=== PATIENT | male | born 1995 | race Caucasian/White ===

== ENCOUNTER 2017-07-22 20:57 | Emergency (ER) | payer SELFPAY ==
[2017-07-22 21:02] VITALS: BP 131/74; PULSE 98; RESP 16; TEMP 36.8; O2SAT 98; BMI 29.7
--- NOTE | 2017-07-22 21:10 | XR_ITS ---
XR ribs LT min 3V w CXR1V Ordering Physician: Bashir Shepherd MD Patient Age: 22 years: Male\HISTORY: ITS.REASON: left rib pain TECHNIQUE: Both oblique views left RIBS; along with AP chest above & below diaphragm COMPARISON :January 01, 2012 02/27/2017 CXR FINDINGS Left ribs appear intact with no fracture nor lesion. No pneumothorax. No pleural effusion. Lungs are clear well-expanded with No consolidation nor focal lesion. However now asymmetric prominence of the left arnulfo. The infrahilar region of the left certainly appears to have increased in size since prior studies.. Note the patient is merely 22 years old but but still with this asymmetry Recommend follow-up CT chest with contrast to evaluate for developing adenopathy at the left arnulfo. . See no significant granulomatous disease otherwise at the left chest which may contribute. Findings warrant correlation with pleural physical exam-Any prominent palpable adenopathy evident elsewhere. The spleen does not appear to be obviously enlarged on this CT chest film The heart is normal in size. The right arnulfo appears normal. Remaining Mediastinal structures appear normal.. Incidental note mild disc space narrowing to the left at T 12/L1 with mild dextroscoliosis in this region and slight levoscoliosis more inferiorly at the lumbar spine. These latter features unchanged since February 2017. IMPRESSION: 1. Left Ribs are intact. No fracture. No left rib lesion lung estes are clear 2. Patient has developed asymmetric, prominent left arnulfo. *Would suggest follow-up CT with contrast to evaluate for developing asymmetric left hilar adenopathy left infrahilar region...In this young age patient possibly reflects granulomatous adenopathy but warrants follow-up. This observation also warrants correlation with physical exam to check for any other prominent palpable adenopathy *Note to x-ray staff/ Alesha : Please verify ER receipt of this report and document. Study placed in discrepancy to draw attention to this report
--- NOTE | 2017-07-22 21:48 | [facility].EDGENADL ---
ED Disposition Clinical Impression: Hilar mass Disposition: Home, Self-Care Condition on Discharge: Good Additional Instructions: Ibuprofen 800 mg every [address] Call Dr. Gordon and Dr. Stiles on Tuesday to arrange appointment to be seen as soon as possible. Additional instructions for CONTROLLED SUBSTANCES: You have been prescribed a medication that is a controlled substance. Controlled substances include pain medications known as opiates and sedative nerve medications known as benzodiazepines. Some common opiates include: Codeine (such as Tylenol #3) Hydrocodone (Vicodin, Lortab, Lorcet, [place]) Oxycodone (Percocet, Percodan, Oxycodone, Oxy IR) Some common benzodiazepines include: Diazepam (Valium) Lorazepam (Ativan) Alprazolam (Xanax) Clonazepam (Klonopin) Oxazepam (Serax) All of these controlled substances are highly addictive and frequently abused. Misuse can and frequently does lead to addiction as well as overdose and . Medication should be stored in a locked cabinet or other secure storage unit. Do not store the medication in a motor vehicle. Short term supplies, 3 days or less, are prescribed because of the highly addictive nature of the medication. Any of the controlled substance medication NOT taken should be disposed of properly and NOT SAVED. The recommended method of disposing of unused medications is: Place the medicines in a sealable plastic bag. If the medicine is a solid, crush it or add water to dissolve it. Add something undesirable (cat litter, coffee grounds, etc.) Dispose of sealed bag in household trash Do not flush or pour unused medicines down a sink or drain. Controlled substances should not be shared, given away or sold. Because of the addictive nature and frequent abuse, these medications are sometimes stolen. These medications should be kept in a safe place where they cannot be stolen. Do not keep them in your car or purse. Lost or stolen prescriptions for controlled substances WILL NOT BE REFILLED in this emergency department, regardless of whether a police report was filed. 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 The time I documented below is in addition to time spent performing reported procedures but includes the following listed in this critical care notation. Medical Decision Making Vital Signs: 07/22/17 21:02 Temperature 98.3 F Temperature Source Oral Pulse Rate [Right] 98 H Respiratory Rate 16 Blood Pressure [Right Arm] 131/74 Blood Pressure Mean [Right Arm] 93 Blood Pressure Source [Right Arm] Automatic Cuff Blood Pressure Position [Right Arm] Sitting 02 Sat by Pulse Oximetry 98 Oxygen Delivery Method Room Air - Lab Data Lab Results 07/22/17 22:00: WBC 10.2, RBC 4.85, Hgb 14.6, Hct 43.6, MCV 89.9, MCH 30.1, MCHC 33.5, RDW 13.4, Plt Count 256, MPV 7.7, Neut % (Auto) 69.6, Lymph % (Auto) 21.7, [place] % (Auto) 6.2, Eos % (Auto) 2.3, Baso % (Auto) 0.2, Neut # (Auto) 7.1, Lymph # (Auto) 2.2, [place]enson # (Auto) 0.6, Eos # (Auto) 0.2, Baso # (Auto) 0.0 07/22/17 22:00: Sodium 141, Potassium 3.7, Chloride 104, Carbon Dioxide 30, Anion Gap 10.7, BUN 17, Creatinine 0.94, Estimated Creat Clear 175, Estimated GFR 101, Est GFR ( Amer) 123, Glucose 88, Calcium 8.9, Total Bilirubin 0.3, AST 31, ALT 49, Alkaline Phosphatase 91, Total Protein 7.7, Albumin 4.1, Globul
--- NOTE | 2017-07-22 21:51 | ED_ITS ---
ED Disposition Clinical Impression: Hilar mass Disposition: Home, Self-Care Condition on Discharge: Good Additional Instructions: Ibuprofen 800 mg every 8 hours for pain. Call Dr. Gordon and Dr. Stiles on Tuesday to arrange appointment to be seen as soon as possible. Additional instructions for CONTROLLED SUBSTANCES: You have been prescribed a medication that is a controlled substance. Controlled substances include pain medications known as opiates and sedative nerve medications known as benzodiazepines. Some common opiates include: Codeine (such as Tylenol #3) Hydrocodone (Vicodin, Lortab, Lorcet, [employer]) Oxycodone (Percocet, Percodan, Oxycodone, Oxy IR) Some common benzodiazepines include: Diazepam (Valium) Lorazepam (Ativan) Alprazolam (Xanax) Clonazepam (Klonopin) Oxazepam (Serax) All of these controlled substances are highly addictive and frequently abused. Misuse can and frequently does lead to addiction as well as overdose and . Medication should be stored in a locked cabinet or other secure storage unit. Do not store the medication in a motor vehicle. Short term supplies, 3 days or less, are prescribed because of the highly addictive nature of the medication. Any of the controlled substance medication NOT taken should be disposed of properly and NOT SAVED. The recommended method of disposing of unused medications is: Place the medicines in a sealable plastic bag. If the medicine is a solid, crush it or add water to dissolve it. Add something undesirable (cat litter, coffee grounds, etc.) Dispose of sealed bag in household trash Do not flush or pour unused medicines down a sink or drain. Controlled substances should not be shared, given away or sold. Because of the addictive nature and frequent abuse, these medications are sometimes stolen. These medications should be kept in a safe place where they cannot be stolen. Do not keep them in your car or purse. Lost or stolen prescriptions for controlled substances WILL NOT BE REFILLED in this emergency department, regardless of whether a police report was filed. 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 The time I documented below is in addition to time spent performing reported procedures but includes the following listed in this critical care notation. Medical Decision Making Vital Signs: 07/22/17 21:02 Temperature 98.3 F Temperature Source Oral Pulse Rate [Right] 98 H Respiratory Rate 16 Blood Pressure [Right Arm] 131/74 Blood Pressure Mean [Right Arm] 93 Blood Pressure Source [Right Arm] Automatic Cuff Blood Pressure Position [Right Arm] Sitting 02 Sat by Pulse Oximetry 98 Oxygen Delivery Method Room Air - Lab Data Lab Results 07/22/17 22:00: WBC 10.2, RBC 4.85, Hgb 14.6, Hct 43.6, MCV 89.9, MCH 30.1, MCHC 33.5, RDW 13.4, Plt Count 256, MPV 7.7, Neut % (Auto) 69
[2017-07-22 22:13] LABS: Basophils % 0.2 % (0.1-2.0); Eosinophils # 0.2 K/mm3 (0.0-0.4); Eosinophils % 2.3 % (0.1-12.0); Hematocrit 43.6 % (42.0-52.0); Hemoglobin 14.6 g/dL (14.1-18.0); Lymphocytes # 2.2 K/mm3 (0.7-4.5); Lymphocytes % 21.7 K/mm3 (10-50); Mean Corpuscular HGB Conc 33.5 g/dL (31.8-35.4); Mean Corpuscular Hemoglobin 30.1 pg (27.0-31.2); Mean Corpuscular Volume 89.9 fl (80-94); Mean Platelet Volume 7.7 fl (7.4-10.4); Monocytes # 0.6 K/mm3 (0.1-1.0); Monocytes % 6.2 % (1.7-9.3); Neutrophils # 7.1 K/mm3 (1.8-7.8); Neutrophils % 69.6 % (37.0-80.0); Platelet Count 256 K/mm3 (142-424); Red Blood Count 4.85 M/mm3 (4.60-6.20); Red Cell Distribution Width 13.4 % (11.5-17.5); White Blood Count 10.2 K/mm3 (4.8-10.8)
--- NOTE | 2017-07-22 22:16 | CT_ITS ---
CT angio chest COMPARISON: PA chest and left RIBS 07/22/2017 HISTORY: Left-sided pleuritic chest pain, known left hilar mass TECHNIQUE: Multiple axial scans obtained from the thoracic inlet to the upper abdomen after rapid injection of IV contrast. Sagittal and coronal reformats were evaluated as well. FINDINGS: This is a somewhat poor inspiration. There is excellent vascular opacification. There is no CT evidence of pulmonary emboli. Cardiac size is normal considering the poor inspiration. There is a prominent left hilar mass measuring approximately 2.7 x 3.2 cm with speckled tiny calcifications within the mass. There is no abnormal superior mediastinal adenopathy. There is no abnormal axillary lymphadenopathy. There is no pleural fluid. There is mild bilateral gynecomastia. The adrenal glands appear normal and the spleen is normal in size. IMPRESSION: 1. No CT evidence of pulmonary emboli. 2. Prominent left hilar mass with speckled calcifications and in view the patient's age granulomatous disease is most likely etiology but developing malignancy cannot be entirely excluded, I basically agree with the [facility] report
[2017-07-22 22:24] LABS: Activated Partial Thrombo Time 26.2 seconds (23.6-34.0); INR 0.99 (0.9-1.1); Prothrombin Time 10.7 seconds (9.4-11.8)
[2017-07-22 22:35] LABS: Alanine Aminotransferase 49 U/L (12-78); Albumin Level 4.1 gm/dL (3.4-5.0); Albumin/Globulin Ratio 1.1 (1.1-1.8); Alkaline Phosphatase 91 U/L (46-116); Anion Gap 10.7 mEq/L (5-15); Aspartate Amino Transferase 31 U/L (15-37); Bilirubin,Total 0.3 mg/dL (0.2-1.0); Blood Urea Nitrogen 17 mg/dL (7-18); Calcium 8.9 mg/dL (8.5-10.1); Carbon Dioxide 30 mmol/L (21.0-32.0); Chloride 104 mmol/L (98-107); Creatinine Clearance Estimated 175 mL/min (0-300); Creatinine,Serum 0.94 mg/dL (0.70-1.30); Estimated Glomerular Filt Rate 101 ml/min (>60); GFR (African American) 123 ML/MIN (>60); Globulin 3.6 gm/dl (1.3-3.2); Glucose 88 mg/dL (74-106); Potassium 3.7 mmoL/L (3.5-5.1); Sodium 141 mmol/L (136-145); Total Protein,Serum 7.7 gm/dL (6.4-8.2)
--- NOTE | 2017-07-23 00:16 | PC.NURSE ---
attempting to reach dr Gordon
[2017-07-23 01:39] VITALS: BP 138/72; PULSE 82; RESP 16; TEMP 37.1; O2SAT 98
== END 2017-07-23 01:39 | disposition home or self-care (01) ==
PROVIDERS: Emergency Provider Emergency Medicine; Family Provider Family Medicine
DX: R91.8 Other nonspecific abnormal finding of lung field (principal); R07.89 Other chest pain; F17.210 Nicotine dependence, cigarettes, uncomplicated
CPT/HCPCS: 71101; 71275; 80053; 85025; 85610; 85730; 96365; 96374; 99282; Q9967

== ENCOUNTER → 2018-10-26 09:48 | Outpatient (CLI) | payer BC, SELFPAY ==
[2018-10-26 10:45] LABS: Hemoglobin A1C 5.2 % (0.0-7.0)
[2018-10-26 11:37] LABS: Alanine Aminotransferase 35 U/L (12-78); Albumin Level 3.9 gm/dL (3.4-5.0); Albumin/Globulin Ratio 1.3 (1.1-1.8); Alkaline Phosphatase 83 U/L (46-116); Anion Gap 14.4 mEq/L (5-15); Aspartate Amino Transferase 19 U/L (15-37); Bilirubin,Total 0.4 mg/dL (0.2-1.0); Blood Urea Nitrogen 15 mg/dL (7-18); Calcium 8.5 mg/dL (8.5-10.1); Carbon Dioxide 26 mmol/L (21.0-32.0); Chloride 106 mmol/L (98-107); Creatinine,Serum 0.81 mg/dL (0.70-1.30); Estimated Glomerular Filt Rate 119 ml/min (>60); GFR (African American) 144 ML/MIN (>60); Glucose 94 mg/dL (74-106); Potassium 4.4 mmoL/L (3.5-5.1); Sodium 142 mmol/L (136-145); T4 (Thyroxine) 7.1 ug/dl (4.7-13.3); Thyroid Stimulating Hormone 2.48 uIU/ml (0.358-3.740); Total Protein,Serum 6.9 gm/dL (6.4-8.2)
[2018-10-27 13:20] LABS: Vitamin D 25 Hydroxy 26.5 ng/mL (30.0-100.0)
[2018-10-29 17:19] LABS: H. pylori Breath Test Negative (Negative)
== END ==
PROVIDERS: Visit Provider Nurse Practitioner Family
DX: F41.1 Generalized anxiety disorder (principal); J98.4 Other disorders of lung; K21.9 Gastro-esophageal reflux disease without esophagitis; R73.09 Other abnormal glucose; E55.9 Vitamin D deficiency, unspecified
CPT/HCPCS: 36415; 80053; 82652; 83013; 83036; 84436; 84443

== ENCOUNTER → 2018-10-31 13:58 | Outpatient (CLI) | payer BC, SELFPAY | PROVIDERS: PCP Nurse Practitioner Family; Visit Provider Nurse Practitioner Family | DX: R07.89 Other chest pain (principal); R91.8 Other nonspecific abnormal finding of lung field; R06.02 Shortness of breath | CPT/HCPCS: 93005; 93225; 93226 ==

== ENCOUNTER → 2019-01-23 14:51 | Outpatient (CLI) | payer BC, SELFPAY ==
--- NOTE | 2019-01-23 14:54 | US_ITS ---
PROCEDURE: US GALLBLADDER CLINICAL INDICATION: ruq pain Right upper quadrant pain with nausea and vomiting after eating COMPARISON: No exams were available for comparison FINDINGS: Gallbladder: Numerous gallstones are present. There is mild gallbladder wall thickening. No pericholecystic fluid. Common bile duct is normal at 3 mm. Liver: Unremarkable Pancreas: Unremarkable/Not well seen Right kidney: Unremarkable appearing. No hydronephrosis. IMPRESSION: Cholelithiasis with mildly thickened gallbladder wall Dictated by: Feng Ulrich MD 01/24/2019 05:01 Signed by: <Electronically signed by Feng Ulrich MD in [place]> 01/24/2019 05:01
== END ==
PROVIDERS: PCP Nurse Practitioner Family; Visit Provider Nurse Practitioner Family
DX: R10.11 Right upper quadrant pain (principal)
CPT/HCPCS: 76705